=== PATIENT | female | born 1995 | race African-American/Black ===

== ENCOUNTER 2021-12-13 11:45 | Inpatient (IN) ==
[2021-12-13 12:26] LABS: Basophils % 0.2 % (0.0-0.8); Eosinophils % 0.2 % (0.00-10.9); Hematocrit 30.8 VOL% (35.7-47.0); Hemoglobin 10.2 GM/DL (12.0-16.0); Immature Granulocytes % 0.7 %; Immature Granulocytes Absolute 0.04 #; Lymphocytes # 0.7 10*3/uL (1.4-4.0); Lymphocytes % 13.1 % (21.3-54.2); Mean Corpuscular HGB Conc 33.1 GM/DL (32-36); Mean Corpuscular Volume 92.2 FL (87-102); Mean Platelet Volume 11.1 FL (9.6-12.0); Neutrophils % 76.8 % (38.7-73.9); Platelet Count 153 T/CUMM (130-400); Red Blood Count 3.34 MC/CUMM (3.8-5.5); Red Cell Distribution Width 13.2 % (9.3-17.3); White Blood Count 5.4 T/CUMM (4-12)
[2021-12-13 12:31] LABS: Protein/Creatinine Ratio,Urine 0.3 RATIO
[2021-12-13 12:41] LABS: INR 0.9; PT Patient Result 10.4 SECS (10.5-12.0); Partial Thromboplastin Time 28.4 SECS (23.8-32.1)
[2021-12-13 12:44] LABS: Alanine Aminotransferase 17 U/L (13-56); Albumin 2.5 G/DL (3.4-5.0); Alkaline Phosphatase 126 U/L (45-117); Aspartate Amino Transferase 17 U/L (0-37); Bilirubin,Direct < 0.100 MG/DL (0.0-0.20); Bilirubin,Total < 0.39 MG/DL (0.20-1.00); Blood Urea Nitrogen 2 MG/DL (7-18); Calcium 8.6 MG/DL (8.5-10.1); Carbon Dioxide 24 MMOL/L (21-32); Estimated Glom Filtration Rate 168 ML/MIN; Glucose 106 MG/DL (74-106); Osmolality,Calculated 265.1 MOS/KG (273-304); Potassium 3.3 MMOL/L (3.5-5.1); Sodium 135 MMOL/L (136-145); Total Protein 6.5 G/DL (6.4-8.2); Uric Acid 3.7 MG/DL (2.6-6.0)
[2021-12-13] MEDS: NIFEdipine 10 MG CAPSULE PO PRN ×2 (12:54→13:18)
[2021-12-13] MEDS: ACETAMINOPHEN 500 MG TABLET PO PRN (18:11)
[2021-12-13 19:26] LABS: Bacteria,Urine Few /HPF (Few); RBC,Urine 1 /HPF (0-4); Squamous Epithelial Cell,Urine Few /HPF (0-10)
[2021-12-13 19:27] LABS: Urine Appearance Clear (Clear); Urine Color Yellow (Yellow); Urine Specific Gravity 1.015 (1.001-1.035); Urine pH 7.5 (4.5-8.0)
[2021-12-13 19:28] LABS: Bilirubin,Urine Negative (Negative); Blood, Urine Trace mg/dL (Negative); Glucose,Urine (UA) Negative (Negative); Ketones,Urine Negative (Negative); Nitrite,Urine Negative (Negative); Protein,Urine Negative
[2021-12-13 19:29] LABS: Urine Urobilinogen 0.2 EU/DL (<2.0)
[2021-12-13] MEDS ORDERED: POTASSIUM CHLORIDE 20 MEQ TABLET PO ONE (19:51)
[2021-12-13] MEDS ORDERED: SODIUM CHLORIDE 0.65% NASAL SPRAY 45 ML BOTTLE BOTH NARES PRN (20:26)
[2021-12-13] MEDS ORDERED: OXYTOCIN/LR 30 UNIT/1,000 ML BAG IV PRN (23:21)
[2021-12-13] MEDS ORDERED: BUTORPHANOL 2 MG/ML VIAL IV PRN (23:59)
[2021-12-13] MEDS ORDERED: MEPERIDINE 50 MG/1 ML VIAL IV PRN (23:59)
[2021-12-13] MEDS ORDERED: ONDANSETRON 4 MG/2 ML VIAL IV PRN (23:59)
[2021-12-14] MEDS: ACETAMINOPHEN 500 MG TABLET PO PRN ×2 (00:25→10:40)
[2021-12-14] MEDS: LACTATED RINGERS 1,000 ML IV PRN ×2 (04:22→07:58)
[2021-12-14] MEDS: OXYTOCIN/LR 20 UNIT/1,000 ML BAG IV PRN ×2 (04:23→14:40)
[2021-12-14] MEDS: NIFEdipine 10 MG CAPSULE PO PRN ×2 (05:15→05:43)
[2021-12-14] MEDS ORDERED: FAMOTIDINE 20 MG/2 ML VIAL IV ONE (06:58)
[2021-12-14] MEDS ORDERED: hydrOXYzine HCL 25 MG/1 ML VIAL IM PRN (06:58)
[2021-12-14] MEDS ORDERED: CITRIC ACID/SODIUM CITRATE 30 ML UDCUP PO ONE (06:58)
[2021-12-14] MEDS ORDERED: PROMETHAZINE 25 MG/1 ML VIAL IM ONE (06:58)
[2021-12-14] MEDS ORDERED: diphenhydrAMINE 50 MG/1 ML VIAL IV PRN ×2 (06:58)
[2021-12-14] MEDS ORDERED: LACTATED RINGERS 1,000 ML IV ONE (06:58)
[2021-12-14] MEDS ORDERED: NALOXONE 0.4 MG/ML VIAL IV PRN (06:58)
[2021-12-14] MEDS ORDERED: ePHEDrine 50 MG/ML VIAL IV PRN (06:58)
[2021-12-14] MEDS ORDERED: fentaNYL 2 MCG/ROPIV 0.2% EPID 100 ML EPIDURAL SCH (07:00)
[2021-12-14] MEDS ORDERED: POTASSIUM CHLORIDE 20 MEQ TABLET PO ONE (09:00)
[2021-12-14] MEDS ORDERED: METHYLERGONOVINE 0.2 MG/1 ML AMP ONE (09:31)
[2021-12-14] MEDS ORDERED: CARBOPROST TROMETHAMINE 250 MCG/ML AMP IM ONE (09:31)
[2021-12-14] MEDS ORDERED: miSOPROStoL 200 MCG TABLET ONE (09:31)
[2021-12-14 10:24] LABS: Cord Venous Blood HCO3 24.8 MMOL/L; Cord Venous Blood PCO2 49.9 MMHG; Cord Venous Blood PO2 29.8
[2021-12-14] MEDS ORDERED: MEASLES/MUMPS/RUBELLA VACCINE 0.5 ML VIAL SUBCUT ONE (13:13)
[2021-12-14] MEDS ORDERED: RHO(D) IMMUNE GLOBULIN 300 MCG SYRINGE IM ONE (13:13)
[2021-12-14] MEDS ORDERED: DIPH/TET/ACEL PERT BOOSTER VACCINE 0.5 ML VIAL IM ONE (13:13)
[2021-12-14] MEDS ORDERED: LANOLIN 50% CREAM 0.3 OZ TUBE TOP PRN (13:13)
[2021-12-14] MEDS ORDERED: HYDROCORTISONE 2.5% RECTAL CREAM 30 GM TUBE TOP PRN (13:13)
[2021-12-14] MEDS ORDERED: WITCH HAZEL PADS 100/JAR TOP PRN (13:13)
[2021-12-14] MEDS ORDERED: OXYTOCIN/LR 20 UNIT/1,000 ML BAG IV ONE (13:13)
[2021-12-14] MEDS ORDERED: oxyCODONE/ACETAMINOPHEN 5-325 MG TABLET PO PRN (13:13)
[2021-12-14] MEDS ORDERED: BISACODYL 10 MG SUPP RECTAL PRN (13:13)
[2021-12-14] MEDS ORDERED: BENZOCAINE 20%/MENTHOL 0.5% SPRAY 56 GM CAN TOP PRN (13:13)
[2021-12-14] MEDS ORDERED: ACETAMINOPHEN 325 MG TABLET PO PRN (13:13)
[2021-12-14] MEDS: oxyCODONE/ACETAMINOPHEN 5-325 MG TABLET PO PRN ×2 (15:03→21:09)
[2021-12-14] MEDS: IBUPROFEN 800 MG TABLET PO PRN (21:08)
[2021-12-14] MEDS: DOCUSATE SODIUM 100 MG CAPSULE PO SCH (21:08)
[2021-12-14] MEDS: diphenhydrAMINE CAP 25 MG CAPSULE PO PRN (21:15)
[2021-12-15] MEDS: diphenhydrAMINE CAP 25 MG CAPSULE PO PRN ×2 (03:11→20:00)
[2021-12-15 05:00] LABS: Basophils % 0.1 % (0.0-0.8); Eosinophils # 0.1 10*3/uL (0.0-0.87); Hematocrit 33.6 VOL% (35.7-47.0); Hemoglobin 11.1 GM/DL (12.0-16.0); Immature Granulocytes % 0.5 %; Immature Granulocytes Absolute 0.05 #; Lymphocytes # 1.7 10*3/uL (1.4-4.0); Lymphocytes % 17.7 % (21.3-54.2); Mean Corpuscular Volume 93.3 FL (87-102); Mean Platelet Volume 11.2 FL (9.6-12.0); Monocytes % 8.1 % (1.7-12.7); Neutrophils % 72.6 % (38.7-73.9); Platelet Count 180 T/CUMM (130-400); Red Cell Distribution Width 13.6 % (9.3-17.3); White Blood Count 9.4 T/CUMM (4-12)
[2021-12-15] MEDS: IBUPROFEN 800 MG TABLET PO PRN ×2 (05:52→12:54)
[2021-12-15] MEDS: oxyCODONE/ACETAMINOPHEN 5-325 MG TABLET PO PRN ×2 (05:53→12:56)
[2021-12-15] MEDS: DOCUSATE SODIUM 100 MG CAPSULE PO SCH ×2 (09:19→20:00)
[2021-12-16] MEDS ORDERED: ALUMINUM/MAGNES/SIMETH MAX STR 30 ML UDCUP PO PRN (00:12)
[2021-12-16] MEDS: IBUPROFEN 800 MG TABLET PO PRN (01:07)
[2021-12-16] MEDS: oxyCODONE/ACETAMINOPHEN 5-325 MG TABLET PO PRN (06:04)
[2021-12-16] MEDS: DOCUSATE SODIUM 100 MG CAPSULE PO SCH (09:07)
[2021-12-16 11:25] VITALS: BP 151/92
== END 2021-12-16 13:40 | disposition home or self-care (01) | DRG 560 ==
LOC: N.LDOUT 11:45 → N.LD 11:50 → N.OB 12-14 13:04
PROVIDERS: ADMIT Obstetrics & Gynecology; ATTEND Obstetrics & Gynecology

== ENCOUNTER 2021-12-19 15:42 | Inpatient (IN) ==
[2021-12-16 21:07] LABS: Basophils % 0.2 % (0.0-0.8); Eosinophils % 0.2 % (0.00-10.9); Hematocrit 35.6 VOL% (35.7-47.0); Hemoglobin 11.6 GM/DL (12.0-16.0); Immature Granulocytes % 0.5 %; Immature Granulocytes Absolute 0.06 #; Lymphocytes # 1.3 10*3/uL (1.4-4.0); Lymphocytes % 9.9 % (21.3-54.2); Mean Corpuscular HGB Conc 32.6 GM/DL (32-36); Mean Platelet Volume 10.3 FL (9.6-12.0); Monocytes % 5.8 % (1.7-12.7); Neutrophils % 83.4 % (38.7-73.9); Platelet Count 201 T/CUMM (130-400); Red Blood Count 3.83 MC/CUMM (3.8-5.5); Red Cell Distribution Width 13.7 % (9.3-17.3); White Blood Count 12.7 T/CUMM (4-12)
[2021-12-16 21:27] LABS: Alanine Aminotransferase 22 U/L (13-56); Albumin 2.8 G/DL (3.4-5.0); Alkaline Phosphatase 138 U/L (45-117); Aspartate Amino Transferase 22 U/L (0-37); Bilirubin,Total < 0.39 MG/DL (0.20-1.00); Blood Urea Nitrogen 6 MG/DL (7-18); Carbon Dioxide 27 MMOL/L (21-32); Estimated Glom Filtration Rate 151 ML/MIN; Glucose 90 MG/DL (74-106); Osmolality,Calculated 270.8 MOS/KG (273-304); Potassium 3.8 MMOL/L (3.5-5.1); Sodium 137 MMOL/L (136-145); Total Protein 7.2 G/DL (6.4-8.2)
[2021-12-17] MEDS: ACETAMINOPHEN/CODEINE 300-30 MG TABLET PO PRN ×2 (00:28→16:51)
[2021-12-18 05:50] LABS: Bacteria,Urine Occasional /HPF (Few); Bilirubin,Urine Negative (Negative); Blood, Urine Large mg/dL (Negative); Glucose,Urine (UA) Negative (Negative); Ketones,Urine Negative (Negative); Nitrite,Urine Negative (Negative); Protein,Urine Trace MG/DL; RBC,Urine <1 /HPF (0-4); Squamous Epithelial Cell,Urine Occasional /HPF (0-10); Urine Appearance Slightly Cloudy (Clear); Urine Color Yellow (Yellow); Urine Specific Gravity 1.015 (1.001-1.035); Urine Urobilinogen 0.2 EU/DL (<2.0); Urine pH 7.5 (4.5-8.0)
[2021-12-18 06:11] LABS: Basophils % 0.3 % (0.0-0.8); Eosinophils # 0.1 10*3/uL (0.0-0.87); Eosinophils % 0.5 % (0.00-10.9); Hematocrit 38.5 VOL% (35.7-47.0); Hemoglobin 12.8 GM/DL (12.0-16.0); Immature Granulocytes % 0.6 %; Immature Granulocytes Absolute 0.06 #; Lymphocytes % 10.6 % (21.3-54.2); Mean Corpuscular HGB Conc 33.2 GM/DL (32-36); Mean Corpuscular Volume 93.4 FL (87-102); Mean Platelet Volume 10.9 FL (9.6-12.0); Monocytes % 5.9 % (1.7-12.7); Neutrophils % 82.1 % (38.7-73.9); Platelet Count 218 T/CUMM (130-400); Red Blood Count 4.12 MC/CUMM (3.8-5.5); Red Cell Distribution Width 13.3 % (9.3-17.3); White Blood Count 9.6 T/CUMM (4-12)
[2021-12-18 06:44] LABS: Calcium 9.5 MG/DL (8.5-10.1); Osmolality,Calculated 267.1 MOS/KG (273-304); Potassium 4.2 MMOL/L (3.5-5.1); Risk Ratio 3.06; Thyroid Stimulating Hormone 1.18 uIU/ml (0.358-3.74); VLDL Cholesterol 14.8 MG/DL
[2021-12-18] MEDS: PROPRANOLOL 40 MG TABLET PO SCH ×3 (08:27→21:04)
[2021-12-18] MEDS: ACETAMINOPHEN/CODEINE 300-30 MG TABLET PO PRN (13:41)
[2021-12-18] MEDS: hydrALAZINE 20 MG/1 ML VIAL IV PRN ×2 (16:31→22:32)
[2021-12-19] MEDS: ACETAMINOPHEN/CODEINE 300-30 MG TABLET PO PRN ×2 (07:46→15:54)
[2021-12-19] MEDS: PROPRANOLOL 40 MG TABLET PO SCH ×3 (08:39→20:40)
[~2021-12-19 15:42] MED LIST: LABETALOL 100 MG/20 ML VIAL IV ONE; LEVOFLOXACIN INJ 500 MG/100 ML PREMIX IV ONE; LORazepam 2 MG/1 ML VIAL IV PRN; MEPERIDINE 50 MG/1 ML VIAL IM PRN; NIFEdipine 10 MG CAPSULE PO ONE; NIFEdipine 10 MG CAPSULE PO STA; PROMETHAZINE INJ 25 MG in SODIUM CHLORIDE 0.9% 50 ML IV PRN; PROPRANOLOL LA 80 MG CAPSULE PO SCH; ZALEPLON 5 MG CAPSULE PO PRN; diphenhydrAMINE CAP 25 MG CAPSULE PO ONE
[2021-12-19] MEDS: hydrALAZINE 20 MG/1 ML VIAL IV PRN (19:47)
[2021-12-19] MEDS: SULFAMETHOX/TRIMETHOPRIM 800-160 MG TABLET PO SCH (19:54)
[2021-12-20 05:58] LABS: Basophils % 0.3 % (0.0-0.8); Eosinophils # 0.2 10*3/uL (0.0-0.87); Eosinophils % 2.6 % (0.00-10.9); Hematocrit 39.9 VOL% (35.7-47.0); Immature Granulocytes % 0.7 %; Immature Granulocytes Absolute 0.04 #; Lymphocytes # 1.8 10*3/uL (1.4-4.0); Lymphocytes % 28.8 % (21.3-54.2); Mean Corpuscular HGB Conc 32.6 GM/DL (32-36); Mean Platelet Volume 10.8 FL (9.6-12.0); Monocytes % 10.9 % (1.7-12.7); Neutrophils % 56.7 % (38.7-73.9); Platelet Count 272 T/CUMM (130-400); Red Blood Count 4.29 MC/CUMM (3.8-5.5); Red Cell Distribution Width 13.5 % (9.3-17.3); White Blood Count 6.1 T/CUMM (4-12)
[2021-12-20 06:03] LABS: Calcium 8.9 MG/DL (8.5-10.1); Osmolality,Calculated 272.7 MOS/KG (273-304); Potassium 4.3 MMOL/L (3.5-5.1)
[2021-12-20] MEDS: PROPRANOLOL 40 MG TABLET PO SCH ×2 (08:44→15:30)
[2021-12-20] MEDS: SULFAMETHOX/TRIMETHOPRIM 800-160 MG TABLET PO SCH (08:44)
[2021-12-20] MEDS: ACETAMINOPHEN/CODEINE 300-30 MG TABLET PO PRN (12:38)
[2021-12-20 15:22] VITALS: BP 139/97
== END 2021-12-20 16:40 | disposition home or self-care (01) | DRG 561 ==
LOC: N.OB
PROVIDERS: ADMIT Obstetrics & Gynecology; ATTEND Obstetrics & Gynecology